=== PATIENT | female | born 1985 | race African-American/Black ===

== ENCOUNTER 2019-03-10 16:22 | Emergency (ER) | payer SELFPAY ==
[~2019-03-10] VITALS: Ht 160 cm; Wt 58.1 kg
--- NOTE | 2019-03-10 16:35 | NUR ---
ABD PAIN & BLOATEDNESS W/ NAUSEA X2 WKS, -DIARRHEA. PAIN IS SHARP, 8/10. STATES SHE ALSO HAS PAIN THROUGHOUT HER BODY. ER BED 6, IN GOWN, DR ARMENDARIZ AT BEDSIDE FOR EVAL.
[2019-03-10] MEDS ORDERED: KETOROLAC TROMETHAMINE 15 MG/ML VIAL ONE (16:43)
--- NOTE | 2019-03-10 16:47 | NUR ---
PT REFUSING SALINE LOCK. NOTIFIED
[2019-03-10 16:54] LABS: APPEARANCE,URINE Clear (CLEAR); BILIRUBIN,URINE Negative (NEGATIVE); BLOOD, URINE Negative Ery/uL (NEGATIVE); COLOR,URINE Yellow (YELLOW); KETONES,URINE Negative (NEGATIVE); LEUKOCYTE ESTERASE ,URINE Small (NEGATIVE); NITRITE, URINE Negative (NEGATIVE); PROTEIN,URINE Negative (NEGATIVE); UGLUCOSE Negative (NEGATIVE); UROBILINOGEN,URINE 0.2 EU/dL (0.2)
[2019-03-10 16:56] LABS: BASOPHILS % (AUTO) 1.2 % (0.0-2.0); EOSINOPHILS % (AUTO) 18.3 % (0.0-6.0); HEMATOCRIT 40 % (33-45); HEMOGLOBIN 13.8 g/dL (11.5-14.8); LYMPHOCYTES # (AUTO) 0.9 /CMM (0.8-4.8); LYMPHOCYTES % (AUTO) 24.2 % (20.0-44.0); MEAN CORPUSCULAR HGB CONC 35 g/dl (31.0-36.0); MEAN CORPUSCULAR VOLUME 93 fL (82-100); MONOCYTES # (AUTO) 0.3 /CMM (0.1-1.30); NEUTROPHILS # (AUTO) 1.8 /CMM (1.8-8.9); NEUTROPHILS % (AUTO) 48.3 % (43.0-81.0); PLATELET COUNT (AUTO) 167 /CMM (150-450); RED BLOOD CELL COUNT(AUTO) 4.26 MIL/uL (4.0-5.2); WHITE BLOOD COUNT (AUTO) 3.7 K/uL (4.3-11.0)
[2019-03-10] MEDS ORDERED: IV NS 0.9% 1,000 ML BAG IV ONE (17:00)
[2019-03-10] MEDS ORDERED: KETOROLAC TROMETHAMINE INJ 30 MG/ML VIAL IV ONE (17:00)
[2019-03-10 17:06] LABS: BACTERIA,URINE Few /HPF (None Seen)
[2019-03-10 17:07] LABS: RBC,URINE 0-2 /HPF (0-2); SQUAMOUS EPITHELIAL CELL,UR Moderate /HPF (None Seen)
[2019-03-10 17:11] LABS: ALBUMIN 3.4 g/dL (3.4-5.0); BILIRUBIN,DIRECT 0.2 mg/dL (0.0-0.2); BILIRUBIN,TOTAL 1.3 mg/dL (0.2-1.0); CALCIUM, SERUM 8.7 mg/dL (8.5-10.1); CREATININE 0.6 mg/dL (0.6-1.3); POTASSIUM 3.8 mmol/L (3.5-5.1); TOTAL PROTEIN, SERUM 6.6 g/dL (6.4-8.2)
--- NOTE | 2019-03-10 17:13 | NUR ---
PT TAKEN TO CT VIA PHILIP
--- NOTE | 2019-03-10 18:10 | NUR ---
Patient discharged to home in stable condition. Written and verbal after care instructions given. Patient verbalizes understanding of instruction.
[2019-03-10 18:21] VITALS: BP 109/74
== END 2019-03-10 18:10 | disposition home or self-care (01) ==
LOC: ER 16:26
DX: R10.84 Generalized abdominal pain (principal); N39.0 Urinary tract infection, site not specified; F17.200 Nicotine dependence, unspecified, uncomplicated
CPT/HCPCS: 36415; 80048-TC; 80076-TC; 81000-TC; 83690-TC; 84703-TC; 85025-TC; 87086-TC; J1885; J7030

== ENCOUNTER 2022-04-12 18:37 | Emergency (ER) | payer MEDICAID ==
[~2022-04-12] VITALS: Ht 160 cm; Wt 59.9 kg
[2022-04-12 18:51] VITALS: BP 123/72
== END 2022-04-12 19:24 | disposition home or self-care (01) ==
LOC: ER 18:49
DX: S01.511A Laceration without foreign body of lip, initial encounter (principal); F17.200 Nicotine dependence, unspecified, uncomplicated; Z87.42 Personal history of other diseases of the female genital tract; X58.XXXA Exposure to other specified factors, initial encounter; Y93.89 Activity, other specified; Y92.89 Other specified places as the place of occurrence of the external cause; Y99.8 Other external cause status